=== PATIENT | female | born 1940 | race Caucasian/White ===

== ENCOUNTER → 2018-03-09 | Outpatient (CLI) | payer MEDICARE ==
[~2018-03-09] MED LIST: AMOX-559 PO; ASPI-1471 PO; CHOL200022 PO; DIPH0.5D12 IM; FLU IM; FLU45SYR17 IM; FLU45SYR25 IM ONLY; FLU60SYR30 IM ONLY; FLUT9.9S; GUAI1TAB7 PO; HYDR12.561 PO; KETO5DRO13 OP; LEVO75TA73 PO; LOSA50TA72 PO; LOTE5DRO8 OP; MULT-865 PO; PNEU0.5D3 IM; RALO60TA12 PO; SIMV10TA98 PO
== END ==
LOC: LAB 15:52
PROVIDERS: ATTEND Nurse Practitioner Primary Care
DX: R30.0 Dysuria (principal); L29.8 Other pruritus; R82.79 Other abnormal findings on microbiological examination of urine
CPT/HCPCS: 81001; 87088; 87210

== ENCOUNTER → 2018-03-28 | Outpatient (CLI) | payer MEDICARE ==
--- NOTE | 2018-03-29 09:40 | RADIOLOGY IMAGING REPORT ---
FACILITY: [facility] PATIENT NAME: ARJUN SANDOVAL : [id number] MR: [id number] V: [id number] EXAM DATE: ORDERING PHYSICIAN: HELIO RINCON TECHNOLOGIST: Ana Luisa Solis PROCEDURE:BILATERAL SCREENING MAMMOGRAPHY WITH TOMOGRAPHY & COMPUTER ASSISTED DIAGNOSIS COMPARISON:Compared to priors. INDICATIONS:screening, previous Left lumpectomy. FINDINGS: The breasts are heterogeneously dense. An architectural distortion is present in the inferior Left breast consistent with surgical scaring, unchanged. A few benign appearing calcifications are scattered bilaterally. A few benign appearing asymmetries are scattered also in both breasts unchanged. DIAGNOSTIC CATEGORY 1-NEGATIVE. RECOMMENDATIONS: ROUTINE MAMMOGRAM AND CLINICAL EVALUATION. IMPRESSION: BIRADS 1: Negative. Recommendations: bilateral screening mammography in 1 year. Dictated by: Deejay Rangel M.D. on 03/28/2018 at 14:50 Transcribed by: NETTIE on 03/28/2018 at 15:00 Approved by: Miguel Grace M.D. on 03/29/2018 at 9:39 [facility]
== END ==
LOC: MAMO 01:27
PROVIDERS: ATTEND Internal Medicine
DX: Z12.31 Encounter for screening mammogram for malignant neoplasm of breast (principal); R92.1 Mammographic calcification found on diagnostic imaging of breast
CPT/HCPCS: 77063; 77067

== ENCOUNTER → 2018-04-03 | Outpatient (CLI) | payer MEDICARE ==
[2018-04-03 08:09] LABS: LDL CHOLESTEROL 84 mg/dl
== END ==
LOC: LAB 06:46
PROVIDERS: ATTEND Internal Medicine
DX: I10 Essential (primary) hypertension (principal); E78.00 Pure hypercholesterolemia, unspecified; E03.9 Hypothyroidism, unspecified
CPT/HCPCS: 36415; 82040; 82247; 82310; 82374; 82435; 82465; 82565; 82947; 83718; 84075; 84132; 84155; 84295; 84443; 84450; 84460; 84478; 84520

== ENCOUNTER → 2018-10-04 | Outpatient (CLI) | payer MEDICARE ==
[~2018-10-04] MED LIST changes: +CHOL200018 PO; -CHOL200022 PO; +FLU180SY11 IM; -LOSA50TA72 PO; +LOSA50TA74 PO
[2018-10-04 07:20] LABS: PLATELET COUNT, AUTOMATED 270 K/uL (150-450)
[2018-10-04 08:25] LABS: LDL CHOLESTEROL 73 mg/dl
== END ==
LOC: LAB 06:58
PROVIDERS: ATTEND Internal Medicine
DX: I10 Essential (primary) hypertension (principal); E78.00 Pure hypercholesterolemia, unspecified; E03.9 Hypothyroidism, unspecified
CPT/HCPCS: 36415; 82040; 82247; 82310; 82374; 82435; 82465; 82565; 82947; 83718; 84075; 84132; 84155; 84295; 84443; 84450; 84460; 84478; 84520; 85025

== ENCOUNTER 2019-02-06 01:33 | Day surgery (SDC) | payer MEDICARE ==
[~2019-02-06] VITALS: Ht 160 cm; Wt 53.5 kg
[~2019-02-06 01:33] MED LIST changes: -LOSA50TA74 PO; +LOSA50TA80 PO
[2019-02-06 06:58] VITALS: BP 146/77
[2019-02-06] MEDS ORDERED: PROPOFOL EMUL(*) 10MG/ML 20 ML 40 ML ONE (07:12)
[2019-02-06] MEDS ORDERED: LIDOCAINE MPF 1% 5 ML VIAL ONE (07:12)
[2019-02-06] MEDS ORDERED: LIDOCAINE/SOD BICARB 8.4% SYR ID ONE (07:25)
[2019-02-06] MEDS ORDERED: NORMOSOL R SOLN(*) 1000 ML BAG 1,000 ML IV PRN (07:25)
[2019-02-06 08:25] VITALS: BP 91/53
[2019-02-06 08:31] VITALS: BP 97/54
--- NOTE | 2019-02-06 08:40 | Short(Outpt) Discharge Summary ---
Discharge Summary Reason for Hosp/Final Diag: (1) Colon cancer screening Status: Chronic Hospital Course & Plan: Colonoscopy completed without any problems, normal. Departure Discharge to: Home, Self Care Discharge Instructions Home Meds Active Scripts Raloxifene Hcl (EVISTA) 60 Mg Tablet, 1 TAB PO QDAY, #90 TAB 0 Refills Prov:GERA MONSON MD 01/21/19 Levothyroxine Sodium (LEVOTHYROXINE SODIUM) 75 Mcg Tablet, 1 TAB PO QDAY, #90 TAB 0 Refills Prov:GERA MONSON MD 01/21/19 Simvastatin (SIMVASTATIN) 10 Mg Tablet, 1 TAB PO HS, #90 TAB 0 Refills Prov:HELIO RINCON MD 12/04/18 Losartan Potassium (LOSARTAN POTASSIUM) 50 Mg Tablet, 1 TAB PO QDAY, #90 TAB 0 Refills Prov:HELIO RINCON MD 11/30/18 Hydrochlorothiazide (HYDROCHLOROTHIAZIDE) 12.5 Mg Tablet, 1 TAB PO QDAY, #90 TAB PRN Refills Prov:HELIO RINCON MD 05/04/18 Reported Medications Cholecalciferol (Vitamin D3) (VITAMIN D) 2,000 Unit Tablet, 1 TAB PO QDAY 10/14/14 Aspirin (ASPIR 81) 81 Mg Tablet., 1 TAB PO QDAY, TAB 08/12/14 Diet: Regular Activity: As Tolerated Special Instructions: Your colonoscopy was completed without any problems and your prep was excellent (Good Job!!). I didn't find any polyps or other problems; your colonoscopy was completely normal. National colorectal cancer screening guidelines indicate that screening after 80 years old should be done on an individualized basis. You would be due for another colonoscopy (since this one is normal) when you're 88 years old and so you may consider this colonoscopy today as your last one unless you develop GI symptoms such as change in your bowel habits or blood in your stool. You could decide to have another colonoscopy at 88 years old if you're in excellent health and could potentially live another 10 years at that time. ULISES HARLEY MD Feb 06, 2019 08:40
[2019-02-06 08:58] VITALS: BP 128/69
[2019-02-06 09:20] VITALS: BP 131/60
[2019-02-06 09:22] VITALS: BP 142/74
== END 2019-02-06 09:50 | disposition home or self-care (01) ==
LOC: OR 01:33
PROVIDERS: ATTEND Surgery
DX: Z12.11 Encounter for screening for malignant neoplasm of colon (principal)
CPT/HCPCS: 00812; G0121; J2001; J2704

== ENCOUNTER → 2019-04-24 | Outpatient (CLI) | payer MEDICARE ==
[~2019-04-24] MED LIST changes: +CYAN500T39 PO; -DIPH0.5D12 IM; +DIPH0.5S2 IM; +LEVO50TA86 PO
--- NOTE | 2019-04-24 18:58 | RADIOLOGY IMAGING REPORT ---
FACILITY: [facility] PATIENT NAME: Michelle Coats : 1940 MR: [id number] V: [id number] EXAM DATE: ORDERING PHYSICIAN: GERA MONSON TECHNOLOGIST: Location: [facility] [place] Patient: Michelle Coats : 1940 Visit/Account:[id number] Date of Sevice: 04/24/2019 DEXA Scan Clinical history: Osteopenia. Comparison: 09/23/2011. LUMBAR SPINE: Bone mineral density (BMD) measured in the lumbar spine correlates with a T-score of -1.3 and a Z-sco re of 0.7 which is osteopenia as defined by the World Health Organization. The corresponding risk of fracture in the lumbar spine is increased compared with a young adult reference population. Lumbar spine bone density has decreased by 3.7% compared to previous. Note that degenerative changes may fa lsely increase bone density. LEFT FEMORAL NECK: Bone mineral density (BMD) measured in the femoral neck correlates with a T-score of -0.7 and a Z-sco re of 1.5 which is normal as defined by the World Health Organization. Bone mineral density (BMD) measured in the femoral neck region is 0.939 g/cm2. LEFT TOTAL HIP: Total hip bone mineral density (BMD) correlates with a T-score of 0.2 and a Z-score of 2.3 which is n ormal as defined by the World Health Organization. Total hip bone density has decreased by less rashmi n 1% compared to previous. The corresponding risk of fracture in the hip is not increased compared with a young adult reference population. IMPRESSION: 1. Lumbar spine: Osteopenia. Lumbar spine bone density has decreased by 3.7% compared to previous. 2. Left femoral neck: Normal bone density. 3. Left femoral neck: Bone Mineral Density is 0.939 g/cm2. 4. Left total hip: Normal bone density. Total hip bone density has decreased by less than 1% alfredo red to previous. FRAX WHO Fracture Risk Assessment Tool link: <http://www.shef.ac.uk/FRAX/tool.jsp?locationValue=9> PLEASE NOTE: 1) The World Health Organization defines low BMD as follows: T-score Normal > -1 Osteopenia < -1 and > -2.5 Osteoporosis < -2.5 without fractures Established osteoporosis < -2.5 with fractures 2) In general, you may wish to consider: Diagnosis Treatment Follow-up DEXA Normal BMD Prevention 2-3 years Osteopenia Prevention/therapy 1-2 years Osteoporosis Therapy Yearly 3) Fracture risk estimated from the T-score is more accurate for vertebral fractures (often spontane ous) than for hip fractures. Report Dictated By: Deejay Rangel MD at 04/24/2019 6:49 PM Report E-Signed By: Deejay Rangel MD at 04/24/2019 6:51 PM [id number]
== END ==
LOC: LAB 13:05
PROVIDERS: ATTEND Emergency Medicine
DX: M85.88 Other specified disorders of bone density and structure, other site (principal)
CPT/HCPCS: 36415; 77080; 82306; 82607; 84443

== ENCOUNTER → 2019-06-11 | Outpatient (CLI) | payer MEDICARE ==
[~2019-06-11] MED LIST changes: +GADOBENATE 529MG/1ML 15ML VIAL IVP ONE
--- NOTE | 2019-06-11 14:05 | RADIOLOGY IMAGING REPORT ---
FACILITY: [facility] PATIENT NAME: Michelle Coats : 1940 MR: [id number] V: [id number] EXAM DATE: ORDERING PHYSICIAN: JERAMY LUNA TECHNOLOGIST: Location: [facility] [place] Patient: Michelle Coats : 1940 Visit/Account:[id number] Date of Sevice: 06/11/2019 MR BRAIN/BRAIN STEM W/ & W/O CON Comparisons: None. Additional pertinent history: History of malignant melanoma TECHNIQUE: Multiplanar, multisequence brain MRI was performed with and without gadolinium contrast. CONTRAST: 11 ml of MultiHance. FINDINGS: Sagittal midline structures and craniocervical junction: Negative. Midline shift: None. Ventricles: Negative. Brain parenchyma: Diffusion weighted imaging: Negative. Gradient sequence: Negative. T2 weighted FLAIR images: Scattered foci of abnormal increased T2 signal within the periventricular and subcortical white matter of both cerebral hemispheres, nonspecific but likely representing small vessel ischemic change on a chronic basis. Extra-axial spaces: Mild cerebral atrophy. Dural venous sinuses and major arterial flow voids: Negative. Intracranial enhancement: Negative.. Mastoid air cells and paranasal sinuses: Negative. Surrounding soft tissues and orbits: Negative. Impression: 1. Age related changes as described above. 2. No evidence of acute intracranial pathology. 3. Specifically no evidence of underlying metastatic disease. Report Dictated By: Tino Washington MD at 06/11/2019 1:52 PM Report E-Signed By: Tino Washington MD at 06/11/2019 1:56 PM WSN:[id number]
== END ==
LOC: MRI 07:30
PROVIDERS: ATTEND Internal Medicine Hematology & Oncology
DX: C43.30 Malignant melanoma of unspecified part of face (principal)
CPT/HCPCS: 70553; A9577